=== PATIENT | male | born 1995 | race Two or more races ===

== ENCOUNTER 2020-05-06 05:28 | Day surgery (SDC) | payer OTHER ==
[2020-05-06] MEDS ORDERED: KEFLEX500 MG PO (08:56)
[2020-05-06] MEDS ORDERED: SURFAK240 M1 PO (08:56)
[2020-05-06] MEDS ORDERED: ULTRACET PO (08:56)
== END 2020-05-06 14:05 | disposition home or self-care (01) ==
LOC: CIR.AMB 05:28 → EDSTATUS 08:15 → CIR.AMB 08:15 → O/R 08:15 → CIR.AMB 14:05
PROVIDERS: ATTEND Surgery
DX: K40.90 Unilateral inguinal hernia, without obstruction or gangrene, not specified as recurrent (principal); D17.6 Benign lipomatous neoplasm of spermatic cord